=== PATIENT | male | born 1955 | race Caucasian/White ===

== ENCOUNTER → 2021-11-29 | Outpatient (CLI) | payer MEDICARE ==
[2021-11-29 15:49] LABS: CARBON DIOXIDE 28.4 mmol/L (20.0-32)
[2021-11-29 15:53] LABS: MEAN CORP HGB 34.4 pg (26-34); RED CELL DISTRIBUTION WIDTH 14.1 % (11.5-14.5)
== END | disposition home or self-care (01) ==
LOC: LAB 15:18
PROVIDERS: ATTEND Family Medicine
DX: I50.1 Left ventricular failure, unspecified (principal)
CPT/HCPCS: 36415; 80053; 85027; 85610